=== PATIENT | male | born 1965 | race Caucasian/White ===

== ENCOUNTER 2018-02-06 20:16 | Emergency (ER) | payer OTHER ==
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
[2018-02-06] MEDS ORDERED: KETOROLAC 60 MG/2 ML VIAL IM STA (21:01)
[2018-02-06] MEDS ORDERED: CYCLOBENZAPRINE 10 MG TABLET PO STA (21:01)
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
[2018-02-06 22:20] VITALS: BP 155/93
--- NOTE | 2018-02-06 22:40 | XRAY Preliminary Report ---
Exam: XR CHEST 2 VIEW X-RAY IMPRESSION: No acute cardiopulmonary disease seen. [facility] SITE ID: [id number]
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
[2018-02-06] MEDS ORDERED: CYCLOBENZAPRINE 10 MG Prepack 2 PO PRN (22:43)
[2018-02-06] MEDS ORDERED: HYDROcod/ACET 5/325 Prepack 4 PO STA (22:44)
== END 2018-02-06 23:17 | disposition home or self-care (01) ==
LOC: ED 20:16
DX: S29.012A Strain of muscle and tendon of back wall of thorax, initial encounter (principal); V89.2XXA Person injured in unspecified motor-vehicle accident, traffic, initial encounter; Y92.89 Other specified places as the place of occurrence of the external cause
CPT/HCPCS: 71046; 96372; 99283; A9270